=== PATIENT | female | born 1990 | race Caucasian/White ===

== ENCOUNTER 2023-02-02 14:34 | Emergency (ER) | payer BC ==
[~2023-02-02] VITALS: Ht 167.6 cm; Wt 64.0 kg
[2023-02-02 14:38] VITALS: BP 129/82; PULSE 65; RESP 18; TEMP 98.6; O2SAT 100
[2023-02-02 15:51] LABS: CHLORIDE 107 mEq/L (98-107); INDEX HEMOLYSI 1 (1-3); INDEX ICTERIC 1 (1-4); INDEX LIPEMIC 1 (1-3); POTASSIUM 3.5 mEq/L (3.5-5.1); SODIUM 138 mEq/L (136-145)
[2023-02-02 15:51] LABS: HEMATOCRIT. 36.8 % (36.0-48.0); HEMOGLOBIN. 12.6 g/dL (12.0-16.0); MEAN CORPUSCULAR HEMOGLOBIN 30.5 pg (28.0-32.0); MEAN CORPUSCULAR HGB CONC 34.3 g/dL (31.0-37.0); MEAN PLATELET VOLUME 9.3 fl (7.4-10.4); PLATELET 246 x1000/uL (130-400); RED BLOOD CELL COUNT 4.14 mill/uL (4.2-5.4); RED CELL DISTRIBUTION WIDTH 13.5 % (11.6-14.6); WHITE BLOOD COUNT 12.8 x1000/uL (4.5-11.0)
[2023-02-02 15:53] LABS: DIFFERENTIAL COMMENT 1
[2023-02-02 15:58] LABS: ALANINE AMINOTRANSFERASE 13 IU/L (13-61); ASPARTATE AMINOTRANSFERASE 14 IU/L (15-37); CALCIUM 8.5 mg/dL (8.5-10.1); CARBON DIOXIDE 26 mEq/L (21-32); CREATININE 0.6 mg/dL (0.6-1.3); GLUCOSE 128 mg/dL (70-105); UREA NITROGEN BLOOD 10 mg/dL (7-21)
[2023-02-02 16:02] LABS: BILIRUBIN TOTAL 0.5 mg/dL (0.1-1.0); PROTEIN TOTAL 7.4 g/dL (6.0-8.3)
[2023-02-02 16:04] LABS: TROPONIN I HIGH SENSITIVITY < 4 ng/L (<54)
[2023-02-02] MEDS ORDERED: TOPIRAMATE 25MG TABLET PO STA (17:16)
[2023-02-02] MEDS ORDERED: TOPA25 MT (17:29)
[2023-02-02 17:52] LABS: PLATELET ESTIMATE NORMAL
== END 2023-02-02 18:00 | disposition home or self-care (01) ==
LOC: ER 15:00
DX: R07.89 Other chest pain (principal)
CPT/HCPCS: 36415; 71045; 80053; 84484; 85025; 93005; 99285